=== PATIENT | male | born 1935 | race Caucasian/White ===

== ENCOUNTER → 2017-07-27 | Outpatient (CLI) | payer MEDICARE ==
[~2017-07-27] MED LIST: REGADENOSON 0.4 MG/5 ML SYRINGE ONE
== END | disposition home or self-care (01) ==
LOC: RAD 10:48
PROVIDERS: ATTEND Internal Medicine Cardiovascular Disease
DX: I35.0 Nonrheumatic aortic (valve) stenosis (principal); I10 Essential (primary) hypertension; E78.5 Hyperlipidemia, unspecified
CPT/HCPCS: 78452; 93017; 93306; A9502; J2785

== ENCOUNTER → 2018-07-11 | Outpatient (CLI) | payer MEDICARE | END | disposition home or self-care (01) | LOC: CFH 09:29 | PROVIDERS: ATTEND Internal Medicine Cardiovascular Disease | DX: I35.0 Nonrheumatic aortic (valve) stenosis (principal); I37.1 Nonrheumatic pulmonary valve insufficiency; I34.8 Other nonrheumatic mitral valve disorders; I10 Essential (primary) hypertension; E78.5 Hyperlipidemia, unspecified | CPT/HCPCS: 93306 ==

== ENCOUNTER → 2019-07-03 | Outpatient (CLI) | payer MEDICARE | END | disposition home or self-care (01) | LOC: CFH 09:59 | PROVIDERS: ATTEND Internal Medicine Cardiovascular Disease | DX: I08.8 Other rheumatic multiple valve diseases (principal); I10 Essential (primary) hypertension | CPT/HCPCS: 93306 ==

== ENCOUNTER → 2019-12-30 | Outpatient (CLI) | payer MEDICARE | END | disposition home or self-care (01) | LOC: CVU 10:30 | PROVIDERS: ATTEND Internal Medicine Cardiovascular Disease | DX: I65.23 Occlusion and stenosis of bilateral carotid arteries (principal) | CPT/HCPCS: 93880 ==

== ENCOUNTER 2020-06-25 12:31 | Day surgery (SDC) | payer MEDICARE ==
[~2020-06-25] VITALS: Ht 167.6 cm; Wt 102.3 kg
[2020-06-25 13:41] VITALS: BP 154/72
[2020-06-25] MEDS ORDERED: SIMV40TA20 PO (13:47)
[2020-06-25] MEDS ORDERED: LISI-170 PO (13:47)
[2020-06-25] MEDS ORDERED: OMEP-110 PO (13:47)
[2020-06-25] MEDS ORDERED: NIFE-7 PO (13:47)
[2020-06-25] MEDS ORDERED: TAMS-11 PO (13:47)
[2020-06-25] MEDS ORDERED: ASPI-1026 PO (13:47)
[2020-06-25] MEDS ORDERED: FLUO20CA19 PO (13:47)
[2020-06-25] MEDS ORDERED: MIDAZOLAM 1 MG/ML, 5ML ONE (13:58)
[2020-06-25] MEDS ORDERED: LIDOCAINE-MPF 1%, 5ML ONE (13:58)
[2020-06-25] MEDS ORDERED: HEPARIN 1,000 UNITS/ML, 10ML ONE (13:58)
[2020-06-25] MEDS ORDERED: VERAPAMIL 2.5 MG/ML, 2ML ONE (13:58)
[2020-06-25] MEDS ORDERED: FENTANYL PF 100 MCG/2ML ONE (13:58)
[2020-06-25] MEDS ORDERED: DIPHENHYDRAMINE 50 MG/ML, 1ML ONE (13:59)
[2020-06-25] MEDS ORDERED: DIPHENHYDRAMINE 50 MG/ML, 1ML IVPush ONE (14:00)
[2020-06-25] MEDS ORDERED: SODIUM CHLORIDE 0.9% 1,000 ML IV SCH ×2 (14:00→15:00)
[2020-06-25 14:01] LABS: BASOPHILS % (AUTO) 2 % (0-1); EOSINOPHILS % (AUTO) 3 % (1-7); LYMPHOCYTES % (AUTO) 26 % (22-44); MEAN CORPUSCULAR HEMOGLOBIN 31.7 pg (27.5-34.5); MEAN CORPUSCULAR HGB CONC 33.5 g/dL (33.2-36.2); MEAN PLATELET VOLUME 9.4 fL (7.4-10.4); MONOCYTES % (AUTO) 9 % (2-9); NEUTROPHILS % (AUTO) 62 % (42-75); PLATELET COUNT 160 x10^3/uL (130-400); RED BLOOD COUNT 4.76 x10^6/uL (4.38-5.82)
[2020-06-25 14:09] LABS: ANION GAP 5 mmol/L (5-15); CALCIUM 9.3 mg/dL (8.5-10.1); CHLORIDE 107 mmol/L (98-107); CREATININE 1.03 mg/dL (0.7-1.3)
[2020-06-25 14:28] LABS: MD SCAN
== END 2020-06-25 16:37 | disposition home or self-care (01) ==
LOC: CACL 12:31
PROVIDERS: ATTEND Internal Medicine Cardiovascular Disease
DX: Z01.810 Encounter for preprocedural cardiovascular examination (principal); I35.0 Nonrheumatic aortic (valve) stenosis; I25.10 Atherosclerotic heart disease of native coronary artery without angina pectoris; I25.84 Coronary atherosclerosis due to calcified coronary lesion; I10 Essential (primary) hypertension; E78.2 Mixed hyperlipidemia; G47.30 Sleep apnea, unspecified; E66.3 Overweight; Z68.37 Body mass index [BMI] 37.0-37.9, adult; Z79.82 Long term (current) use of aspirin; Z79.899 Other long term (current) drug therapy; Z87.891 Personal history of nicotine dependence; Z88.5 Allergy status to narcotic agent
CPT/HCPCS: 36415; 80048; 83880; 85025; 93454; 99156; 99157; C1769; C1894; J1200; J1644; J2250; J3010; Q9967

== ENCOUNTER → 2020-07-03 | Outpatient (CLI) | payer MEDICARE ==
[~2020-07-03] MED LIST changes: +ASPI-1026 PO; +FLUO20CA19 PO; +LISI-170 PO; +NIFE-7 PO; +OMEP-110 PO; -REGADENOSON 0.4 MG/5 ML SYRINGE ONE; +SIMV40TA20 PO; +TAMS-11 PO; +VISIPAQUE 320 MG/ML, 150ML BOTTLE ONE
== END | disposition home or self-care (01) ==
LOC: RAD 10:40
PROVIDERS: ATTEND Internal Medicine Cardiovascular Disease
DX: Z01.810 Encounter for preprocedural cardiovascular examination (principal); I65.29 Occlusion and stenosis of unspecified carotid artery; R91.1 Solitary pulmonary nodule; I70.0 Atherosclerosis of aorta; I35.8 Other nonrheumatic aortic valve disorders; R59.0 Localized enlarged lymph nodes
CPT/HCPCS: 71275; 74174; Q9967

== ENCOUNTER 2020-07-28 07:37 | Inpatient (IN) | payer MEDICARE ==
[~2020-07-28] VITALS: Ht 168.9 cm; Wt 102.3 kg
[~2020-07-28 07:37] MED LIST changes: -VISIPAQUE 320 MG/ML, 150ML BOTTLE ONE
[2020-07-28] MEDS ORDERED: ACYC-40 PO (08:20)
[2020-07-28] MEDS ORDERED: IBUP-1223 PO (08:23)
[2020-07-28] MEDS ORDERED: NIAC500T9 PO (08:23)
[2020-07-28] MEDS ORDERED: CALCIUM PO (08:23)
[2020-07-28 08:26] VITALS: BP 140/80
[2020-07-28] MEDS ORDERED: SODIUM CHLORIDE 0.9% 1,000 ML IV ONE (08:30)
[2020-07-28] MEDS ORDERED: ONDANSETRON 2MG/ML, 2ML IV PRN (08:30)
[2020-07-28 08:35] LABS: BASOPHILS % (AUTO) 2 % (0-1); EOSINOPHILS % (AUTO) 3 % (1-7); LYMPHOCYTES % (AUTO) 23 % (22-44); MEAN CORPUSCULAR HEMOGLOBIN 31.6 pg (27.5-34.5); MEAN CORPUSCULAR HGB CONC 33.4 g/dL (33.2-36.2); MEAN PLATELET VOLUME 9.5 fL (7.4-10.4); MONOCYTES % (AUTO) 10 % (2-9); NEUTROPHILS % (AUTO) 63 % (42-75); PLATELET COUNT 150 x10^3/uL (130-400); RED BLOOD COUNT 4.64 x10^6/uL (4.38-5.82); RED CELL DISTRIBUTION WIDTH 13.9 % (9.4-14.8)
[2020-07-28 08:38] LABS: MD NO
[2020-07-28 08:45] LABS: INTERNATIONAL NORMALIZED RATIO 1.04 (0.93-1.1); PROTHROMBIN TIME 11.1 Seconds (9.6-11.5)
[2020-07-28 08:46] LABS: ALANINE AMINOTRANSFERASE 21 U/L (12-78); ALBUMIN 4.2 g/dL (3.4-5.0); ANION GAP 7 mmol/L (5-15); CALCIUM 8.9 mg/dL (8.5-10.1); CHLORIDE 110 mmol/L (98-107); CREATININE 1.03 mg/dL (0.7-1.3)
[2020-07-28 08:49] LABS: ALKALINE PHOSPHATASE 50 U/L (45-117); BILIRUBIN,TOTAL 0.6 mg/dL (0.2-1.0); TOTAL PROTEIN 7.5 g/dL (6.4-8.2)
[2020-07-28] MEDS ORDERED: DEXAMETHASONE 4 MG/ML, 1ML ONE ×2 (10:28)
[2020-07-28] MEDS ORDERED: FENTANYL PF 250 MCG/5ML ONE (10:28)
[2020-07-28] MEDS ORDERED: CEFAZOLIN 1,000 MG ONE ×2 (10:28)
[2020-07-28] MEDS ORDERED: ROCURONIUM 10MG/ML,5ML ONE (10:31)
[2020-07-28] MEDS ORDERED: SUCCINYLCHOLINE 20 MG/ML, 10ML ONE (10:31)
[2020-07-28] MEDS ORDERED: HEPARIN 1,000 UNITS/ML, 10ML ONE (10:31)
[2020-07-28] MEDS ORDERED: PROPOFOL 10 MG/ML, 20ML ONE (10:31)
[2020-07-28] MEDS ORDERED: PHENYLEPHRINE 10 MG/ML ONE (10:43)
[2020-07-28] MEDS ORDERED: PROTAMINE SULFATE 10 MG/ML, 5ML ONE (10:44)
[2020-07-28] MEDS ORDERED: ONDANSETRON 2MG/ML, 2ML ONE (11:36)
[2020-07-28] MEDS ORDERED: hydrALAzine 20 MG/ML, 1ML IVPush PRN (12:00)
[2020-07-28] MEDS: ASPIRIN 325 MG TABLET EC PO SCH (12:00)
[2020-07-28] MEDS ORDERED: ACYCLOVIR 400 MG TABLET PO PRN (12:00)
[2020-07-28] MEDS ORDERED: LABETALOL 20 MG/4 ML IVPush PRN (12:00)
[2020-07-28] MEDS ORDERED: CALCIUM 600 MG PO SCH (16:00)
[2020-07-28 19:34] VITALS: BP 150/76
[2020-07-28] MEDS ORDERED: IBUPROFEN 200 MG TABLET ONE (20:54)
[2020-07-28] MEDS: IBUPROFEN 800 MG TABLET PO SCH (20:59)
[2020-07-28] MEDS: TAMSULOSIN 0.4 MG CAP.ER.24H PO SCH (20:59)
[2020-07-28] MEDS: NIACIN 1000 MG HOMEMEDPO SCH (21:00)
[2020-07-28] MEDS ORDERED: SIMVASTATIN 40 MG TABLET PO SCH (21:00)
[2020-07-28] MEDS: CALCIUM 600 MG HOMEMEDPO SCH (21:00)
[2020-07-29 00:53] VITALS: BP 144/82
[2020-07-29 05:37] LABS: BASOPHILS % (AUTO) 0 % (0-1); EOSINOPHILS % (AUTO) 0 % (1-7); LYMPHOCYTES % (AUTO) 10 % (22-44); MEAN CORPUSCULAR HEMOGLOBIN 31.9 pg (27.5-34.5); MEAN CORPUSCULAR HGB CONC 33.6 g/dL (33.2-36.2); MEAN PLATELET VOLUME 9.7 fL (7.4-10.4); MONOCYTES % (AUTO) 8 % (2-9); NEUTROPHILS % (AUTO) 82 % (42-75); PLATELET COUNT 136 x10^3/uL (130-400); RED BLOOD COUNT 3.97 x10^6/uL (4.38-5.82); RED CELL DISTRIBUTION WIDTH 13.7 % (9.4-14.8)
[2020-07-29 05:45] LABS: ANION GAP 6 mmol/L (5-15); CALCIUM 8.5 mg/dL (8.5-10.1); CHLORIDE 106 mmol/L (98-107)
[2020-07-29 05:47] LABS: CREATININE 1.04 mg/dL (0.7-1.3)
[2020-07-29 05:59] LABS: MD NO
[2020-07-29] MEDS ORDERED: OMEPRAZOLE 20 MG CAPSULE.DR PO SCH (06:00)
[2020-07-29] MEDS ORDERED: LISINOPRIL 20 MG TABLET PO SCH (09:00)
[2020-07-29] MEDS ORDERED: FLUOXETINE 10 MG CAP PO SCH (09:00)
[2020-07-29 10:00] VITALS: BP 136/84
[2020-07-29] MEDS: ASPIRIN 325 MG TABLET EC PO SCH (10:13)
[2020-07-29] MEDS: IBUPROFEN 800 MG TABLET PO SCH (10:13)
[2020-07-29] MEDS: TAMSULOSIN 0.4 MG CAP.ER.24H PO SCH (10:13)
[2020-07-29] MEDS: NIACIN 1000 MG HOMEMEDPO SCH (10:16)
[2020-07-29] MEDS: CALCIUM 600 MG HOMEMEDPO SCH (10:16)
[2020-07-29] MEDS ORDERED: ACET-76 PO (10:19)
[2020-07-29] MEDS ORDERED: DOCUSATE 100 MG CAPSULE PO PRN (11:30)
== END 2020-07-29 13:10 | disposition home or self-care (01) | DRG 266 ==
LOC: ORIP 07:37 → 5SO 16:15 → DCLOUNGE 07-29 13:04
PROVIDERS: ADMIT Internal Medicine Cardiovascular Disease; ATTEND Internal Medicine Cardiovascular Disease
PROC: B41D1ZZ Fluoroscopy of Aorta and Bilateral Lower Extremity Arteries using Low Osmolar Contrast (ICD-10-PCS; 2020-07-28)
PROC: B24BZZ4 Ultrasonography of Heart with Aorta, Transesophageal (ICD-10-PCS; 2020-07-28)
PROC: 02RF38Z Replacement of Aortic Valve with Zooplastic Tissue, Percutaneous Approach (ICD-10-PCS; principal; 2020-07-28 10:30)
DX: I35.0 Nonrheumatic aortic (valve) stenosis (principal); Z00.6 Encounter for examination for normal comparison and control in clinical research program; I50.33 Acute on chronic diastolic (congestive) heart failure; Z20.822 Contact with and (suspected) exposure to COVID-19; Z88.5 Allergy status to narcotic agent; I11.0 Hypertensive heart disease with heart failure; E78.5 Hyperlipidemia, unspecified; G47.30 Sleep apnea, unspecified; I25.10 Atherosclerotic heart disease of native coronary artery without angina pectoris
CPT/HCPCS: 33361; 36415; 76937; 80048; 80053; 85025; 85347; 85610; 86850; 86900; 86923; 87635; 93005; 93306; 93312; 93321; 93325; 93355; C1760; C1769; C1894; G0378; J0690; J1100; J1644; J2405; J2704; J2720; J3010; J0330; J2370; Q9967

== ENCOUNTER 2020-08-04 10:51 | Outpatient (CLI) | payer MEDICARE ==
[~2020-08-04 10:51] MED LIST changes: +ACET-76 PO; +ACYC-40 PO; +CALCIUM PO; +IBUP-1223 PO; +NIAC500T9 PO
== END 2020-08-04 23:59 | disposition home or self-care (01) ==
LOC: CVU 10:51
PROVIDERS: ATTEND Physician Assistant
DX: I72.4 Aneurysm of artery of lower extremity (principal); M79.81 Nontraumatic hematoma of soft tissue
CPT/HCPCS: 93926

== ENCOUNTER → 2020-08-20 | Outpatient (CLI) | payer MEDICARE | END | disposition home or self-care (01) | LOC: CVU 09:33 | PROVIDERS: ATTEND Internal Medicine Cardiovascular Disease | DX: Z01.810 Encounter for preprocedural cardiovascular examination (principal); I08.8 Other rheumatic multiple valve diseases; I65.29 Occlusion and stenosis of unspecified carotid artery; I11.9 Hypertensive heart disease without heart failure; E78.5 Hyperlipidemia, unspecified; Z95.4 Presence of other heart-valve replacement | CPT/HCPCS: 93306 ==